=== PATIENT | male | born 1940 | race Caucasian/White ===

== ENCOUNTER 2022-10-29 11:11 | Outpatient (CLI) | payer MEDICARE, BC | END 2022-10-29 11:12 | disposition home or self-care (01) | LOC: MADRAD 11:11 | PROVIDERS: ATTEND Internal Medicine | DX: J44.9 Chronic obstructive pulmonary disease, unspecified (principal) | CPT/HCPCS: 71046 ==

== ENCOUNTER 2025-04-12 11:44 | Outpatient (CLI) | payer MEDICARE, BC | END 2025-04-12 11:45 | disposition home or self-care (01) | LOC: MADRAD 11:44 | PROVIDERS: ATTEND Internal Medicine | DX: J44.9 Chronic obstructive pulmonary disease, unspecified (principal) | CPT/HCPCS: 71046 ==